=== PATIENT | male | born 1955 | race African-American/Black ===

== ENCOUNTER 2017-12-12 13:05 | Inpatient (IN) | payer MEDICARE, MEDICAID ==
[~2017-12-12] VITALS: Ht 167.6 cm; Wt 95.7 kg
[2017-12-12] MEDS ORDERED: NORVASC5 MG PO (13:21)
[2017-12-12] MEDS ORDERED: NEURONTIN 300300 M1 PO (13:22)
[2017-12-12] MEDS ORDERED: FLORASTOR250 MG PO (13:22)
[2017-12-12] MEDS ORDERED: LIPITOR 20 MG T20 M1 PO (13:22)
[2017-12-12] MEDS ORDERED: LEXAPRO20 MG PO (13:22)
[2017-12-12] MEDS ORDERED: ZANTAC 150MG T150 MG PO (13:23)
[2017-12-12] MEDS ORDERED: QUETIAPINE FUM100 MG PO ×2 (13:23)
[2017-12-12] MEDS ORDERED: TRAZODONE 150150 M1 PO (13:24)
[2017-12-12] MEDS ORDERED: NOVOLOG100 UNIT/1 SUBQ (13:24)
[2017-12-12] MEDS ORDERED: LANTUS100 UNIT/M SUBQ (13:24)
[2017-12-12] MEDS ORDERED: ISORDIL10 MG PO (13:25)
[2017-12-12] MEDS ORDERED: LACTULOSE10 GM/152 PO (13:25)
[2017-12-12] MEDS ORDERED: GLUCOPHAGE XR500 MG PO (13:26)
[2017-12-12] MEDS ORDERED: KEPPRA 500 MG500 M1 PO (13:26)
[2017-12-12] MEDS ORDERED: CLARITIN10 MG PO (13:26)
[2017-12-12] MEDS ORDERED: ATIVAN0.5 MG PO (13:26)
[2017-12-12] MEDS ORDERED: TOPROL XL25 MG PO (13:27)
[2017-12-12 13:54] LABS: ABSOLUTE BASOPHILS 0.1 thou/uL (0.0-0.2); ABSOLUTE EOSINOPHILS 0.2 thou/uL (0.0-0.7); ABSOLUTE LYMPHOCYTES 1.7 thou/uL (0.8-5.3); ABSOLUTE MONOCYTES 0.6 thou/uL (0.0-1.2); ABSOLUTE NEUTROPHILS 5.4 thou/uL (1.6-8.1); BASOPHILS 0.7 %; EOSINOPHILS 2.8 %; HEMATOCRIT 33.4 % (42.0-52.0); HEMOGLOBIN 11.4 gm/dL (14.0-18.0); LYMPHOCYTES 21.4 %; MCH 33.4 pg (26.0-34.0); MCV 98.2 fL (80.0-100.0); MONOCYTES 7.4 %; MPV 10.5 fl. (7.2-11.1); NUCLEATED RBCS 0 /100WBC; PLATELET COUNT* 100 thou/uL (150-400); POLYS 67.7 %
--- NOTE | 2017-12-12 14:11 | NUR ---
PT AMBULATES TO BATHROOM AT THIS TIME WITH STEADY GAIT.
[2017-12-12 14:17] LABS: INFLUENZA A ANTIGEN None Detected (None Detect); INFLUENZA B ANTIGEN None Detected (None Detect)
[2017-12-12 14:20] LABS: ANION GAP 8 mmol/L (7-16); BUN 17 mg/dL (7-18); CALCIUM 8.9 mg/dL (8.5-10.1); CHLORIDE 97 mmol/L (98-107); CO2 23 mmol/L (21-32); CREATININE 1.7 mg/dL (0.6-1.3); POTASSIUM 5.6 mmol/L (3.5-5.1); SODIUM 128 mmol/L (136-145)
[2017-12-12 14:21] LABS: GLUCOSE 740 mg/dL (70-99)
[2017-12-12 14:26] LABS: ALKALINE PHOSPHATASE 257 U/L (46-116); LIPASE 239 U/L (73-393); SGOT 100 U/L (15-37); SGPT 82 U/L (30-65); TOTAL BILIRUBIN 0.5 mg/dL (<0.1-1.0); TOTAL PROTEIN 7.6 g/dL (6.4-8.2); TROPONIN-I LEVEL <0.06 ng/mL (<0.06)
[2017-12-12 14:41] LABS: BE -3.6 mmol/L (-2 to +3); HCO3 21.2 mmol/L (22.0-26.0); PO2 71.2 mmHg (75.0-100.0); pH 7.375 (7.340-7.450)
[2017-12-12 14:55] LABS: MAGNESIUM 1.4 mg/dL (1.8-2.4); PHOSPHORUS* 3.4 mg/dL (2.5-4.9)
[2017-12-12 15:20] VITALS: BP 146/80
[2017-12-12 15:45] VITALS: BP 154/90
[2017-12-12 16:12] LABS: URINE BILIRUBIN NEGATIVE (Negative); URINE BLOOD TRACE (Negative); URINE CLARITY SL CLOUDY; URINE COLOR YELLOW; URINE GLUCOSE-RANDOM 3+ (Negative); URINE KETONES NEGATIVE (Negative); URINE LEUKOCYTES-REFLEX NEGATIVE (Negative); URINE PROTEIN NEGATIVE (Negative); URINE SPECIFIC GRAVITY <= 1.005 (1.005-1.030); URINE UROBILINOGEN 0.2 E.U./dl (0.2-1.0)
[2017-12-12 16:17] LABS: URINE NITRITE-REFLEX POSITIVE (Negative)
[2017-12-12 16:22] LABS: BACTERIA-REFLEX >30 Many /HPF (None Seen)
[2017-12-12 16:23] LABS: CASTS None Seen /LPF (None Seen); CRYSTALS None Seen /LPF (None Seen); MUCUS None Seen strn/LPF (None Seen); SQUAMOUS NONE SEEN /LPF (0-3); URINE RBC 0-2 Rare /HPF (0-2); URINE WBC-REFLEX 6-15 Few /HPF (0-5); WBC CLUMPS Few (None Seen)
[2017-12-12] MEDS ORDERED: XIFAXAN550 M1 PO (17:48)
[2017-12-12] MEDS ORDERED: DUONEB 2.5-0.5 M3 ML INH (17:49)
[2017-12-12 20:00] VITALS: BP 138/81
[2017-12-13] VITALS: BP 124/65
[2017-12-13 04:04] VITALS: BP 128/80
--- NOTE | 2017-12-13 04:26 | NUR ---
ALERT AND ORIENTED X 4. INSULIN DRIP WAS DISCONT. EARLY IN SHIFT. BS AT 0330 228. NO INSULIN ORDERS PHYSICIAN TO EVAL IN AM. CONT. BED IN LOW POSITION, CALL LIGHT IN REACH.
[2017-12-13 05:31] LABS: ABSOLUTE EOSINOPHILS 0.4 thou/uL (0.0-0.7); ABSOLUTE LYMPHOCYTES 2.7 thou/uL (0.8-5.3); ABSOLUTE MONOCYTES 0.6 thou/uL (0.0-1.2); ABSOLUTE NEUTROPHILS 6.7 thou/uL (1.6-8.1); BASOPHILS 0.5 %; EOSINOPHILS 3.6 %; HEMATOCRIT 33.2 % (42.0-52.0); HEMOGLOBIN 11.6 gm/dL (14.0-18.0); LYMPHOCYTES 26.1 %; MCH 33.3 pg (26.0-34.0); MCHC 34.9 g/dL (28.0-37.0); MCV 95.4 fL (80.0-100.0); MPV 10.8 fl. (7.2-11.1); NUCLEATED RBCS 0 /100WBC; PLATELET COUNT* 111 thou/uL (150-400); POLYS 63.8 %; RBC 3.48 mil/uL (4.50-6.00); RDW-CV 12.8 % (10.5-14.5); WBC 10.4 thou/uL (4.0-11.0)
[2017-12-13 05:58] LABS: ALBUMIN 2.8 g/dL (3.4-5.0); CALCIUM 8.9 mg/dL (8.5-10.1); CREATININE 1.3 mg/dL (0.6-1.3); TOTAL BILIRUBIN 0.7 mg/dL (<0.1-1.0)
[2017-12-13 06:02] LABS: POTASSIUM 4.5 mmol/L (3.5-5.1)
[2017-12-13 10:30] VITALS: BP 146/74
[2017-12-13 12:02] VITALS: BP 151/88
--- NOTE | 2017-12-13 12:30 | NUR ---
PT RESTING IN BED IN SEMI-FLORENTINO'S POSITION AT BEGINNING OF SHIFT. PT O x 4. ASSESSMENT COMPLETE. SR ON MONITOR. UP TO BR WITH SBA, HAD INCONTINENCE. SKIN CLEANSED & GOWN/SOCKS CHANGED. PT COOPERATIVE, BUT MOVES AGGRESSIVELY IN BED. PT DISLODGED IV SITE ACCIDENTALLY DURING THIS MOVEMENT. NEEDED ITEMS AND CALL LIGHT IN REACH.
[2017-12-13 15:23] VITALS: BP 150/79
--- NOTE | 2017-12-13 15:50 | NUR ---
CM ASSESSMENT: Pt is A&O. Hx of schizophrenia. LTC resident at [facility]. Cm spoke with Tiffanie at [facility], Pt is normally independent and can return once medically stable. Following for dc needs.
--- NOTE | 2017-12-13 16:14 | EKG ---
[place] [address] ELECTROCARDIOGRAM REPORT Name: FAUSTINO CONTRERAS Room: [address] ADM IN M.R.#: [id number] Admission: 12/12/17 Attend Phys: Aristeo Boyer Discharge: Date of : 53 Report #: [id number] THIS REPORT FOR: //name// [facility] ED Test Date: 2017-12-12 Test Time: 13:49:55 Pat Name: FAUSTINO CONTRERAS Department: Room: [facility] Gender: M Pre Fabricator: MED STUDENT : 1955 Requested By: Nato Brown Order Number: [id number] MD: Ramesh Batista Measurements Intervals [place] Rate: 91 P: 40 MD: 119 QRS: 54 QRSD: 81 T: 28 QT: 332 QTc: 409 Interpretive Statements Sinus rhythm Borderline short MD interval Left atrial enlargement No previous ECG available for comparison Electronically Signed On 12-13-2017 16:14:32 PLUGMAN by Ramesh Batista [email or web address] <ELECTRONICALLY SIGNED> By: Ramesh Batista MD, [facility] 12/13/17 1614 1349 1349 Ramesh Batista MD, FACC /EPI
[2017-12-13 20:00] VITALS: BP 159/79
[2017-12-14] VITALS: BP 132/65
[2017-12-14 02:07] LABS: GLYCOHEMOGLOBIN (HGB A1C) 6.4 % (4.8-5.6)
[2017-12-14 04:00] VITALS: BP 136/63
--- NOTE | 2017-12-14 04:16 | NUR ---
ALERT AND ORIENTED X 4. UP WITH ASSIST. CONT. TO MONITOR BLOOD GLUCOSE. DENIES PAIN OR DISCOMFORT. WILL PROCEED WITH CURRENT PLAN OF CARE AT THIS TIME.
[2017-12-14 05:27] LABS: ABSOLUTE BASOPHILS 0.1 thou/uL (0.0-0.2); ABSOLUTE EOSINOPHILS 0.5 thou/uL (0.0-0.7); ABSOLUTE MONOCYTES 0.7 thou/uL (0.0-1.2); ABSOLUTE NEUTROPHILS 6.6 thou/uL (1.6-8.1); BASOPHILS 0.6 %; EOSINOPHILS 4.6 %; HEMATOCRIT 33.9 % (42.0-52.0); HEMOGLOBIN 11.8 gm/dL (14.0-18.0); LYMPHOCYTES 27.4 %; MCH 33.3 pg (26.0-34.0); MCHC 34.8 g/dL (28.0-37.0); MCV 95.7 fL (80.0-100.0); MONOCYTES 6.7 %; MPV 10.8 fl. (7.2-11.1); NUCLEATED RBCS 0 /100WBC; PLATELET COUNT* 116 thou/uL (150-400); POLYS 60.7 %; RBC 3.54 mil/uL (4.50-6.00); RDW-CV 12.6 % (10.5-14.5); WBC 10.9 thou/uL (4.0-11.0)
[2017-12-14 05:37] LABS: ALBUMIN 2.8 g/dL (3.4-5.0); CALCIUM 8.8 mg/dL (8.5-10.1); CREATININE 1.2 mg/dL (0.6-1.3); POTASSIUM 4.3 mmol/L (3.5-5.1); TOTAL BILIRUBIN 0.8 mg/dL (<0.1-1.0); TOTAL PROTEIN 7.4 g/dL (6.4-8.2)
[2017-12-14 09:15] VITALS: BP 142/83
--- NOTE | 2017-12-14 10:00 | NUR ---
PT SITTING IN CHAIR NEAR WINDOW WITH IV FLUIDS INFUSING ORDERED. ORIENTED TO SELF AND SITUATION. ASSESSMENT COMPLETE. VS WNL. SR ON TELEMETRY MONIOTR. NO C/O PAIN OR DISTRESS. NEEDED ITEMS AND CALL LIGHT WITHIN REACH.
[2017-12-14] MEDS ORDERED: LEVAQUIN 750 M750 MG PO (10:56)
[2017-12-14 12:00] VITALS: BP 147/81
--- NOTE | 2017-12-14 13:32 | NUR ---
Pt discharging back to [facility] today. Faxed dc orders. Chart copied. Left VM for Pt's Yasemin WESLEY. Facility will crop picker Pt around 330pm.
[2017-12-14 15:05] VITALS: BP 147/81
--- NOTE | 2017-12-14 15:15 | NUR ---
PT DC ORDER COMPLETE. REVIEWED DC INSTRUCTIONS AND MED LIST WITH PT. IV AND ADVANCE SEAL DELIVERY SYSTEM MAINTAINER DC'D. PT IN POSSESSION OF ALL BELONGINGS. TRANSPORTER TRANSFERRED PT TO . PT LEFT UNIT AT 1530 WITH TRANSPORTER WHO WILL TAKE PT TO [facility].
== END 2017-12-14 15:30 | DRG 441 ==
LOC: M.ERS 13:05 → M.TBA-ER 14:41 → M.2W 14:41
PROVIDERS: Emergency Medicine; ADMIT Internal Medicine
DX: K72.00 Acute and subacute hepatic failure without coma (principal); N17.0 Acute kidney failure with tubular necrosis; E11.00 Type 2 diabetes mellitus with hyperosmolarity without nonketotic hyperglycemic-hyperosmolar coma (NKHHC); N39.0 Urinary tract infection, site not specified; E44.0 Moderate protein-calorie malnutrition; E11.65 Type 2 diabetes mellitus with hyperglycemia; I12.9 Hypertensive chronic kidney disease with stage 1 through stage 4 chronic kidney disease, or unspecified chronic kidney disease; N18.3 Chronic kidney disease, stage 3 (moderate); F17.210 Nicotine dependence, cigarettes, uncomplicated; F41.9 Anxiety disorder, unspecified; B19.20 Unspecified viral hepatitis C without hepatic coma; K21.9 Gastro-esophageal reflux disease without esophagitis; E11.40 Type 2 diabetes mellitus with diabetic neuropathy, unspecified; F32.9 Major depressive disorder, single episode, unspecified; H40.9 Unspecified glaucoma; E78.5 Hyperlipidemia, unspecified; Z79.899 Other long term (current) drug therapy; Z88.8 Allergy status to other drugs, medicaments and biological substances; Z79.4 Long term (current) use of insulin

== ENCOUNTER 2020-05-16 10:05 | Inpatient (IN) | payer MEDICARE, MEDICAID ==
[~2020-05-16] VITALS: Ht 185.4 cm; Wt 83.6 kg
[~2020-05-16 10:05] MED LIST: ATIVAN0.5 MG PO; CLARITIN10 MG PO; DUONEB 2.5-0.5 M3 ML INH; FLORASTOR250 MG PO; GLUCOPHAGE XR500 MG PO; ISORDIL10 MG PO; KEPPRA 500 MG500 M1 PO; LACTULOSE10 GM/152 PO; LANTUS100 UNIT/M SUBQ; LEVAQUIN 750 M750 MG PO; LEXAPRO20 MG PO; LIPITOR 20 MG T20 M1 PO; NEURONTIN 300300 M1 PO; NORVASC5 MG PO; NOVOLOG100 UNIT/1 SUBQ; QUETIAPINE FUM100 MG PO; TOPROL XL25 MG PO; TRAZODONE HCL100 MG PO; XIFAXAN550 M1 PO; ZANTAC 150MG T150 MG PO
[2020-05-16 10:06] VITALS: BP 122/68
[2020-05-16] MEDS ORDERED: MIRALAX119 GM PO (10:25)
[2020-05-16] MEDS ORDERED: DEPAKOTE250 MG PO (10:27)
[2020-05-16] MEDS ORDERED: LANTANOPROST (10:29)
[2020-05-16] MEDS ORDERED: LEVEMIR FL100 UNIT/2 SUBQ ×2 (10:30)
[2020-05-16] MEDS ORDERED: ARIPIPRAZOLE OD10 MG PO (10:31)
[2020-05-16] MEDS ORDERED: ASA81BEC PO (10:32)
[2020-05-16] MEDS ORDERED: CHLORTHALIDONE25 MG PO (10:32)
[2020-05-16 11:20] LABS: HEMATOCRIT 29.2 % (42.0-52.0); HEMOGLOBIN 10.2 gm/dL (14.0-18.0); MCH 32.6 pg (26.0-34.0); MCV 93.1 fL (80.0-100.0); MPV 8.7 fl. (7.2-11.1); NUCLEATED RBCS 0 /100WBC; PLATELET COUNT* 131 thou/uL (150-400); RBC 3.14 mil/uL (4.50-6.00); WBC 26.3 thou/uL (4.0-11.0)
[2020-05-16 11:31] LABS: CALCIUM 8.3 mg/dL (8.5-10.1); CREATININE 2.5 mg/dL (0.6-1.3); INR 1.1; POTASSIUM 5.1 mmol/L (3.5-5.1); PROTIME 10.9 Seconds (9.20-11.50)
[2020-05-16 11:36] LABS: MAGNESIUM 1.5 mg/dL (1.8-2.4); TOTAL BILIRUBIN 0.5 mg/dL (<0.1-1.0)
[2020-05-16 11:45] LABS: BE -8.9 mmol/L (-2 to +3); PCO2 28.8 mmHg (35.0-45.0); PO2 100.4 mmHg (75.0-100.0); pH 7.349 (7.340-7.450)
[2020-05-16 11:58] LABS: ABSOLUTE LYMPHOCYTES 1.8 thou/uL (0.8-5.3); ABSOLUTE MONOCYTES 1.8 thou/uL (0.0-1.2); ABSOLUTE NEUTROPHILS 22.6 thou/uL (1.6-8.1); PLATELET ESTIMATE ADEQUATE
[2020-05-16 17:41] VITALS: BP 154/79
[2020-05-16 20:50] VITALS: BP 150/78
[2020-05-16 21:00] VITALS: BP 156/81
[2020-05-17] VITALS: BP 132/72
[2020-05-17 04:12] VITALS: BP 151/85
[2020-05-17 06:01] LABS: ABSOLUTE EOSINOPHILS 0.1 thou/uL (0.0-0.7); ABSOLUTE LYMPHOCYTES 3.5 thou/uL (0.8-5.3); ABSOLUTE MONOCYTES 1.1 thou/uL (0.0-1.2); ABSOLUTE NEUTROPHILS 13.4 thou/uL (1.6-8.1); BASOPHILS 0.3 %; EOSINOPHILS 0.8 %; HEMATOCRIT 25.5 % (42.0-52.0); HEMOGLOBIN 9.1 gm/dL (14.0-18.0); LYMPHOCYTES 19.3 %; MCHC 35.6 g/dL (28.0-37.0); MCV 92.9 fL (80.0-100.0); MPV 8.3 fl. (7.2-11.1); NUCLEATED RBCS 0 /100WBC; PLATELET COUNT* 103 thou/uL (150-400); POLYS 73.6 %; RBC 2.75 mil/uL (4.50-6.00); RDW-CV 12.8 % (10.5-14.5); WBC 18.2 thou/uL (4.0-11.0)
[2020-05-17 06:15] LABS: ALBUMIN 2.6 g/dL (3.4-5.0); CALCIUM 8.3 mg/dL (8.5-10.1); POTASSIUM 4.4 mmol/L (3.5-5.1); TOTAL BILIRUBIN 0.4 mg/dL (<0.1-1.0); TOTAL PROTEIN 6.2 g/dL (6.4-8.2)
[2020-05-17 07:30] VITALS: BP 126/74
[2020-05-17 12:00] VITALS: BP 154/80
--- NOTE | 2020-05-17 12:34 | EKG ---
[place] [address] ELECTROCARDIOGRAM REPORT Name: FAUSTINO CONTRERAS Room: [address] ADM IN .R.#: [id number] Admission: 05/16/20 Attend Phys: Guy Aldridge, Discharge: Date of : 53 Date of Service: 05/16/20 1010 Report #: [id number] THIS REPORT FOR: //name// [facility] ED Test Date: 2020-05-16 Test Time: 10:10:35 Pat Name: FAUSTINO CONTRERAS Department: Room: [facility] Gender: M Inside Sales Person: : 1955 Requested By: Kyleigh Mixon Order Number: [id number] MD: Jesse Uriarte Measurements Intervals [place] Rate: 133 P: [place]: QRS: 45 QRSD: 90 T: 109 QT: 339 QTc: 505 Interpretive Statements NSR RSR' in V1 or V2, probably normal variant Repol abnrm suggests ischemia, diffuse leads Artifact in lead(s) III,aVR,aVL,V1,V2,V3,V4,V5,V6 Compared to ECG 12/12/2017 13:49:55 RSR' in V1 or V2 now present Early repolarization now present Possible ischemia now present Electronically Signed On 05-17-2020 12:34:31 CDT by Jesse Uriarte [email or web address] <ELECTRONICALLY SIGNED> By: Wale Uriarte MD, [facility] 05/17/20 1234 1010 1010 Wale Uriarte MD, [facility] /EPI
[2020-05-17 16:00] VITALS: BP 145/80
[2020-05-17 20:10] VITALS: BP 169/89
[2020-05-18] VITALS: BP 163/83
[2020-05-18 03:59] VITALS: BP 136/81
[2020-05-18 05:46] LABS: ABSOLUTE EOSINOPHILS 0.2 thou/uL (0.0-0.7); ABSOLUTE MONOCYTES 0.8 thou/uL (0.0-1.2); ABSOLUTE NEUTROPHILS 11.4 thou/uL (1.6-8.1); BASOPHILS 0.2 %; EOSINOPHILS 1.3 %; HEMATOCRIT 25.9 % (42.0-52.0); HEMOGLOBIN 9.1 gm/dL (14.0-18.0); LYMPHOCYTES 19.5 %; MCH 32.7 pg (26.0-34.0); MCHC 35.2 g/dL (28.0-37.0); MCV 92.9 fL (80.0-100.0); MPV 8.5 fl. (7.2-11.1); NUCLEATED RBCS 0 /100WBC; PLATELET COUNT* 123 thou/uL (150-400); RBC 2.78 mil/uL (4.50-6.00); RDW-CV 12.6 % (10.5-14.5); WBC 15.5 thou/uL (4.0-11.0)
[2020-05-18 06:00] LABS: CREATININE 1.8 mg/dL (0.6-1.3); POTASSIUM 4.5 mmol/L (3.5-5.1)
[2020-05-18 08:30] VITALS: BP 158/80
[2020-05-18 11:46] VITALS: BP 152/87
[2020-05-18] MEDS ORDERED: FLAGYL500 M1 PO (12:15)
[2020-05-18 13:56] VITALS: BP 152/87
== END 2020-05-18 15:15 | DRG 441 ==
LOC: M.ERS 10:05 → M.TBA-ER 13:34 → M.2W 14:42 → M.TBA-ER 14:42 → M.2W 21:15
PROVIDERS: Personal Emergency Response Attendant; ADMIT Internal Medicine; ATTEND Internal Medicine
DX: K72.00 Acute and subacute hepatic failure without coma (principal); R65.11 Systemic inflammatory response syndrome (SIRS) of non-infectious origin with acute organ dysfunction; N17.0 Acute kidney failure with tubular necrosis; E87.2 Acidosis; Z20.828 Contact with and (suspected) exposure to other viral communicable diseases; F20.9 Schizophrenia, unspecified; B19.20 Unspecified viral hepatitis C without hepatic coma; I10 Essential (primary) hypertension; F41.9 Anxiety disorder, unspecified; K74.60 Unspecified cirrhosis of liver; G47.00 Insomnia, unspecified; F17.210 Nicotine dependence, cigarettes, uncomplicated; K59.00 Constipation, unspecified; E86.0 Dehydration; K52.9 Noninfective gastroenteritis and colitis, unspecified; K72.01 Acute and subacute hepatic failure with coma; K21.9 Gastro-esophageal reflux disease without esophagitis; E78.5 Hyperlipidemia, unspecified; E11.40 Type 2 diabetes mellitus with diabetic neuropathy, unspecified; K72.90 Hepatic failure, unspecified without coma; F32.9 Major depressive disorder, single episode, unspecified; Z79.899 Other long term (current) drug therapy; Z79.82 Long term (current) use of aspirin; Z88.8 Allergy status to other drugs, medicaments and biological substances

== ENCOUNTER → 2021-01-19 | Outpatient (CLI) | payer MEDICARE, MEDICAID ==
[~2021-01-19] MED LIST changes: +ARIPIPRAZOLE OD10 MG PO; +ASA81BEC PO; +CHLORTHALIDONE25 MG PO; +DEPAKOTE250 MG PO; +FLAGYL500 M1 PO; +LANTANOPROST; +LEVEMIR FL100 UNIT/2 SUBQ; +MIRALAX119 GM PO
== END ==
LOC: M.CT 09:40
PROVIDERS: ATTEND Surgery
DX: R22.0 Localized swelling, mass and lump, head (principal)

== ENCOUNTER → 2021-01-28 | Day surgery (SDC) | payer MEDICARE, MEDICAID ==
[~2021-01-28] MED LIST changes: +TYLENOL325 M1 PO; +ULTRAM50 MG PO
[2021-01-28 09:54] LABS: HEMATOCRIT 30.7 % (42.0-52.0); HEMOGLOBIN 10.5 gm/dL (14.0-18.0); MCH 31.2 pg (26.0-34.0); MCHC 34.2 g/dL (28.0-37.0); MCV 91.1 fL (80.0-100.0); MPV 7.9 fl. (7.2-11.1); RBC 3.38 mil/uL (4.50-6.00); WBC 11.2 thou/uL (4.0-11.0)
[2021-01-28 09:59] LABS: CALCIUM 8.8 mg/dL (8.5-10.1); CREATININE 3.1 mg/dL (0.6-1.3); POTASSIUM 4.8 mmol/L (3.5-5.1)
--- NOTE | 2021-01-28 12:22 | OP ---
[address] [address] OPERATIVE REPORT Name: FAUSTINO CONTRERAS Room: [facility] Isaias.Magui.#: [id number] Admission: 01/28/21 Attend Phys: Shannan Chapin DO Discharge: Date of : 53 Report #: [id number] THIS REPORT FOR: cc: Mariano Hopkins MD, Dennis R MD Brock, Christie M. DO ~ DICTATED BY: Katina Mccann DO DATE OF SERVICE: 01/28/2021 PREOPERATIVE DIAGNOSIS: Face lesion. POSTOPERATIVE DIAGNOSIS: Face lesion. PRIMARY SURGEON: Shannan Chapin DO LEAD ASSEMBLER: Katina Mccann DO, PGY3 PROCEDURE PERFORMED: Excision of face lesion. ANESTHESIA: Local MAC. ESTIMATED BLOOD LOSS: 10 mL. SPECIMEN REMOVED: Face lesion. COMPLICATIONS: None. OPERATIVE FINDINGS: Face lesion was excised measuring approximately 3 cm x 2 cm x 2 cm, incision was 3 cm in length, depth of dissection was down to subcutaneous tissues. INDICATIONS FOR PROCEDURE: The patient is a pleasant 65-year-old gentleman that presented to our office with complaint of an enlarging facial mass on the lower aspect of the right side of his chin. Due to the size and discomfort that was causing, it was recommended that he undergo excision of this mass. CT scan was performed preoperatively to ensure there was no bony involvement or involvement of any of the other surrounding structures. The procedure, risks, benefits, possible complications to include bleeding, infection, injury to surrounding structures, need for additional surgery, wound healing complications, recurrence of the face lesion, risks of anesthesia, and other risks of surgery were discussed with the patient in great detail. He voiced complete understanding and wished to proceed with surgery. DESCRIPTION OF PROCEDURE: Informed consent was obtained. The patient was taken [place] [id number] OPERATIVE REPORT Name: CONTRERASFAUSTINO Kane Room: [facility] Shanti#: [id number] Admission: 01/28/21 Attend Phys: Shannan Chapin DO Discharge: Date of : 53 Report #: [id number] to the operating room and placed supine on the operating room table. Monitored anesthesia care was initiated without difficulty. The area was prepped and draped in the standard sterile fashion. A timeout was performed to ensure correct patient and procedure. We began by anesthetizing the area with approximately 10 mL of 1% lidocaine with epinephrine and an elliptical incision was made around the visible mass using a #15 blade scalpel. The incision was carried down to the subcutaneous tissues using a pair of tenotomy scissors. The mass was excised in its entirety. Our incision measured approximately 3 cm in length. The mass measured approximately 3 cm x 2 cm x 2 cm, the depth of dissection was down to the subcutaneous tissue. The wound was irrigated. Hemostasis was achieved with electrocautery. The deep subcutaneous tissues were reapproximated using 3-0 Vicryl suture in a simple interrupted and inverted fashion. The skin was closed using a 4-0 PDS in a running fashion. The area was cleansed and dried. Antibiotic ointment was applied to the incision. The patient tolerated the procedure very well. He was allowed to completely awaken in the operating room and was transferred to the PACU in stable condition with plans to discharge later today. <ELECTRONICALLY SIGNED> By: Shannan Chapin DO 01/28/21 1222 1057 1131Cfamilia Chapin DO /nt
--- NOTE | 2021-01-29 09:54 | EKG ---
[place] [address] ELECTROCARDIOGRAM REPORT Name: FAUSTINO CONTRERAS Room: [facility]#: [id number] Admission: 01/28/21 Attend Phys: Shannan Chapin, Discharge: Date of : 53 Date of Service: 01/28/[address] Report #: [id number] THIS REPORT FOR: //name// [facility] Test Date: 2021-01-28 Test Time: 09:32:19 Pat Name: FAUSTINO CONTRERAS Department: Room: Gender: Publicity Manager: [place] : 1955 Requested By: Shannan Chapin Order Number: [id number] Reading MD: Skyler Flynn Measurements Intervals [place] Rate: 80 P: 64 AL: 117 QRS: 54 QRSD: 98 T: 79 QT: 380 QTc: 439 Interpretive Statements Sinus rhythm Borderline short AL interval Probable left atrial enlargement Borderline repolarization abnormality Compared to ECG 05/16/2020 10:10:35 Possible ischemia no longer present Electronically Signed On 01-29-2021 9:53:49 CDT by Skyler Flynn [email or web address] <ELECTRONICALLY SIGNED> By: Skyler Flynn MD, [facility] 01/29/21 0953 0932 Skyler Flynn MD, [facility] /EPI
--- NOTE | 2021-02-02 10:07 | PATH ---
[facility] [address] [place] [address] PATHOLOGY RPT PROCEDURE Name: FAUSTINO PAULA Room: [facility] M.R.#: [id number] Admission: 01/28/21 Date of : 53 Discharge: Report #: [id number] Path Case #: [id number] [facility] Accession Number: [id number] . 01 Material submitted: . face - FACIAL LESION . 01 Clinical history: . SWELLING MASS OR LUMP ON FACE . 02 Diagnosis: Facial lesion: - Benign skin with epidermal inclusion cyst showing chronic and acute inflammation, foreign body type granulomatous response and fibrosis. ([facility]OBERTO:[place]; 02/01/2021) MBR 02/01/2021 [facility] Local . 02 Electronically signed: . Rene Fritz MD, Pathologist NPI- [id number] . 01 Gross description: . Received in formalin labeled "Paula, Faustino, face lesion" is an unoriented ellipse of skin measuring 2.9 x 1.7 x 0.1 cm. The skin surface displays no discrete lesion identified. The margin is inked and the specimen is sectioned into 7 pieces to reveal a cystic structure filled with gelatinous clemens-brown material measuring 1.6 x 1.1 x 0.7 cm. Car Packer sections of the specimen are submitted in cassette A1-A2.([facility]; 01/30/2021) GZA/GZA 02/01/2021 1655 [facility] . 02 Pathologist provided ICD-10: L72.0 . 02 CPT . 382582 Specimen Comment: A courtesy copy of this report has been sent to [phone] Specimen Comment: [phone] Specimen Comment: Report sent to / Performed at: [address], [place], [place] [id number] MD Andrew Ramirez MD Phone: [phone] Performed at: 02 [facility] [address], [place], [place] [id number] MD Rene Fritz MD Phone: [phone]
== END | disposition home or self-care (01) ==
LOC: M.SUR 05:38
PROVIDERS: ATTEND Surgery
DX: L72.0 Epidermal cyst (principal); L92.3 Foreign body granuloma of the skin and subcutaneous tissue; I10 Essential (primary) hypertension; E11.9 Type 2 diabetes mellitus without complications; E78.5 Hyperlipidemia, unspecified; H40.9 Unspecified glaucoma; F41.9 Anxiety disorder, unspecified; K21.9 Gastro-esophageal reflux disease without esophagitis; F32.9 Major depressive disorder, single episode, unspecified; G47.00 Insomnia, unspecified; G62.9 Polyneuropathy, unspecified; Z98.890 Other specified postprocedural states; Z79.899 Other long term (current) drug therapy; Z88.8 Allergy status to other drugs, medicaments and biological substances; Z86.19 Personal history of other infectious and parasitic diseases

== ENCOUNTER 2021-06-01 12:23 | Emergency (ER) | payer MEDICARE, MEDICAID ==
[~2021-06-01] VITALS: Ht 177.8 cm; Wt 99.8 kg
[2021-06-01] MEDS ORDERED: INSULIN AS100 UNIT/1 SUBQ (12:34)
[2021-06-01] MEDS ORDERED: NORVASC10 MG PO (12:35)
[2021-06-01] MEDS ORDERED: ABILIFY15 MG PO (12:36)
[2021-06-01] MEDS ORDERED: BRIMONIDINE 0.110 ML OPHTHALMIC (12:36)
[2021-06-01] MEDS ORDERED: CARVEDILOL25 MG PO (12:37)
[2021-06-01] MEDS ORDERED: HYDRALAZINE HC100 MG PO (12:38)
[2021-06-01] MEDS ORDERED: ERYTHROMYCIN E3.5 G2 OPHTHALMIC (12:38)
[2021-06-01] MEDS ORDERED: DORZOLAMIDE 2%10 ML OPHTHALMIC (12:38)
--- NOTE | 2021-06-01 12:38 | EKG ---
[place] [address] ELECTROCARDIOGRAM REPORT Name: FAUSTINO CONTRERAS [id number] Admission: 06/01/21 Attend Phys: Discharge: Date of : 53 Date of Service: 06/01/21 1232 Report #: [id number] THIS REPORT FOR: //name// [facility] ED Test Date: 2021-06-01 Test Time: 12:32:43 Pat Name: FAUSTINO CONTRERAS Department: Room: Gender: M Medicaid Billing Clerk: SHARMILA : 1955 Requested By: Reji Kamara Order Number: [id number] MD: Skyler Flynn Measurements Intervals [place] Rate: 78 P: 60 TX: 124 QRS: 55 QRSD: 96 T: 87 QT: 372 QTc: 424 Interpretive Statements Sinus rhythm Left atrial enlargement Nonspecific T abnrm, anterolateral leads Baseline wander in lead(s) V2 Compared to ECG 01/28/2021 09:32:19 t wave changes more prominent Electronically Signed On 06-01-2021 12:37:51 CDT by Skyler Flynn [email or web address] <ELECTRONICALLY SIGNED> By: Skyler Flynn MD, [facility] 06/01/21 1237 1232 1232 Skyler Flynn MD, [facility] /EPI
[2021-06-01] MEDS ORDERED: MIRTAZAPINE7.5 MG PO (12:39)
[2021-06-01] MEDS ORDERED: LATANOPROST 0.7.5 ML OPHTHALMIC (12:39)
[2021-06-01] MEDS ORDERED: OCUFLOX5 ML OPHTHALMIC (12:40)
[2021-06-01] MEDS ORDERED: OXTELLAR XR150 MG PO (12:40)
[2021-06-01] MEDS ORDERED: PREDNISOLONE ACE5 ML LT. EYE (12:40)
[2021-06-01] MEDS ORDERED: ACETAZOLAMIDE250 M1 PO (12:41)
[2021-06-01] MEDS ORDERED: TIMOLOL MALEATE5 M2 OPHTHALMIC (12:41)
[2021-06-01] MEDS ORDERED: SODIUM BICARBO650 M3 PO (12:41)
[2021-06-01 12:45] LABS: ABSOLUTE BASOPHILS 0.1 thou/uL (0.0-0.2); ABSOLUTE EOSINOPHILS 0.4 thou/uL (0.0-0.7); ABSOLUTE LYMPHOCYTES 2.3 thou/uL (0.8-5.3); ABSOLUTE MONOCYTES 0.6 thou/uL (0.0-1.2); ABSOLUTE NEUTROPHILS 9.3 thou/uL (1.6-8.1); BASOPHILS 0.9 %; EOSINOPHILS 2.9 %; HEMATOCRIT 27.8 % (42.0-52.0); HEMOGLOBIN 9.3 gm/dL (14.0-18.0); LYMPHOCYTES 18.5 %; MCH 31.2 pg (26.0-34.0); MCHC 33.6 g/dL (28.0-37.0); MCV 92.8 fL (80.0-100.0); MONOCYTES 4.4 %; NUCLEATED RBCS 0 /100WBC; PLATELET COUNT* 160 thou/uL (150-400); POLYS 73.3 %; RBC 2.99 mil/uL (4.50-6.00); RDW-CV 12.1 % (10.5-14.5); WBC 12.7 thou/uL (4.0-11.0)
[2021-06-01 12:54] LABS: CALCIUM 8.5 mg/dL (8.5-10.1); CREATININE 3.6 mg/dL (0.6-1.3); POTASSIUM 4.5 mmol/L (3.5-5.1)
[2021-06-01 13:05] LABS: TOTAL BILIRUBIN 0.3 mg/dL (<0.1-1.0)
[2021-06-01 13:33] LABS: URINE BILIRUBIN NEGATIVE (Negative); URINE BLOOD NEGATIVE (Negative); URINE CLARITY SL CLOUDY; URINE COLOR YELLOW; URINE GLUCOSE-RANDOM NEGATIVE (Negative); URINE KETONES NEGATIVE (Negative); URINE LEUKOCYTES-REFLEX 1+ (Negative); URINE NITRITE-REFLEX NEGATIVE (Negative); URINE PROTEIN 3+ (Negative); URINE UROBILINOGEN 0.2 E.U./dl (0.2-1.0)
[2021-06-01 13:39] LABS: CASTS None Seen /LPF (None Seen); SQUAMOUS 0-3 Few /LPF (0-3); URINE RBC 0-2 Rare /HPF (0-2)
[2021-06-01 13:40] LABS: CRYSTALS None Seen /LPF (None Seen)
[2021-06-01] MEDS ORDERED: MACROBID 100 M100 M1 PO (14:49)
[2021-06-01 15:07] VITALS: BP 151/78
== END 2021-06-01 15:08 | disposition home or self-care (01) ==
LOC: M.ERS 12:23
PROVIDERS: Family Medicine
DX: N39.0 Urinary tract infection, site not specified (principal); R53.1 Weakness; I10 Essential (primary) hypertension; K21.9 Gastro-esophageal reflux disease without esophagitis; E11.40 Type 2 diabetes mellitus with diabetic neuropathy, unspecified; F17.210 Nicotine dependence, cigarettes, uncomplicated; Z88.8 Allergy status to other drugs, medicaments and biological substances

== ENCOUNTER 2021-09-19 10:13 | Emergency (ER) | payer MEDICARE, MEDICAID ==
[~2021-09-19] VITALS: Ht 172.7 cm; Wt 97.1 kg
[~2021-09-19 10:13] MED LIST changes: +ABILIFY15 MG PO; +ACETAZOLAMIDE250 M1 PO; +BRIMONIDINE 0.110 ML OPHTHALMIC; +CARVEDILOL25 MG PO; +DORZOLAMIDE 2%10 ML OPHTHALMIC; +ERYTHROMYCIN E3.5 G2 OPHTHALMIC; +HYDRALAZINE HC100 MG PO; +INSULIN AS100 UNIT/1 SUBQ; +LATANOPROST 0.7.5 ML OPHTHALMIC; +MACROBID 100 M100 M1 PO; +MIRTAZAPINE7.5 MG PO; +NORVASC10 MG PO; +OCUFLOX5 ML OPHTHALMIC; +OXTELLAR XR150 MG PO; +PREDNISOLONE ACE5 ML LT. EYE; +SODIUM BICARBO650 M3 PO; +TIMOLOL MALEATE5 M2 OPHTHALMIC
[2021-09-19] MEDS ORDERED: LORAZEPAM 0.50.5 MG PO (10:22)
[2021-09-19] MEDS ORDERED: OXTELLAR XR150 MG PO (10:23)
[2021-09-19] MEDS ORDERED: SEROQUEL XR 20200 MG PO (10:25)
--- NOTE | 2021-09-19 11:10 | EKG ---
[place] [address] ELECTROCARDIOGRAM REPORT Name: FAUSTINO CONTRERAS Room: [facility]#: [id number] Admission: 09/19/21 Attend Phys: Discharge: Date of : 53 Date of Service: 09/19/21 1033 Report #: [id number] THIS REPORT FOR: //name// [facility] ED Test Date: 2021-09-19 Test Time: 10:33:21 Pat Name: FAUSTINO CONTRERAS Department: Room: Gender: Binder Cutter: : 1955 Requested By: Cuba Guillermo Order Number: [id number] MD: Jesse Uriarte Measurements Intervals [place] Rate: 80 P: 39 NE: 116 QRS: 49 QRSD: 92 T: 76 QT: 423 QTc: 488 Interpretive Statements Pacemaker spikes or artifacts Sinus rhythm Borderline short NE interval Probable left atrial enlargement Borderline prolonged QT interval Compared to ECG 06/01/2021 12:32:43 No significant changes Electronically Signed On 09-19-2021 11:10:43 RECRUITMENT DIRECTOR by Jesse Uriarte [email or web address] <ELECTRONICALLY SIGNED> By: Wale Uriarte MD, [facility] 09/19/21 1110 1033 1033 Wale Uriarte MD, [facility] /EPI
[2021-09-19 11:21] LABS: ALBUMIN 2.6 g/dL (3.4-5.0); CREATININE 4.3 mg/dL (0.6-1.3); POTASSIUM 4.6 mmol/L (3.5-5.1); TOTAL BILIRUBIN 0.3 mg/dL (<0.1-1.0); TOTAL PROTEIN 6.8 g/dL (6.4-8.2)
[2021-09-19 12:38] LABS: ABSOLUTE BASOPHILS 0.1 thou/uL (0.0-0.2); ABSOLUTE EOSINOPHILS 0.2 thou/uL (0.0-0.7); ABSOLUTE LYMPHOCYTES 1.5 thou/uL (0.8-5.3); ABSOLUTE MONOCYTES 0.3 thou/uL (0.0-1.2); ABSOLUTE NEUTROPHILS 6.6 thou/uL (1.6-8.1); BASOPHILS 0.9 %; EOSINOPHILS 2.6 %; HEMOGLOBIN 9.1 gm/dL (14.0-18.0); LYMPHOCYTES 17.1 %; MCH 31.4 pg (26.0-34.0); MCHC 34.8 g/dL (28.0-37.0); MCV 90.1 fL (80.0-100.0); MONOCYTES 3.3 %; MPV 8.4 fl. (7.2-11.1); NUCLEATED RBCS 0 /100WBC; PLATELET COUNT* 124 thou/uL (150-400); POLYS 76.1 %; RBC 2.89 mil/uL (4.50-6.00); WBC 8.7 thou/uL (4.0-11.0)
[2021-09-19] MEDS ORDERED: AUGMENTIN 875-1 EACH PO (13:28)
[2021-09-19] MEDS ORDERED: ZPAK PO (13:28)
[2021-09-19 13:43] VITALS: BP 181/104
== END 2021-09-19 13:46 | disposition home or self-care (01) ==
LOC: M.ERS 10:13
PROVIDERS: Emergency Medicine Emergency Medical Services
DX: J18.9 Pneumonia, unspecified organism (principal); Z20.822 Contact with and (suspected) exposure to COVID-19; F20.9 Schizophrenia, unspecified; E11.40 Type 2 diabetes mellitus with diabetic neuropathy, unspecified; I10 Essential (primary) hypertension; F41.9 Anxiety disorder, unspecified; K21.9 Gastro-esophageal reflux disease without esophagitis; F32.9 Major depressive disorder, single episode, unspecified; F17.210 Nicotine dependence, cigarettes, uncomplicated; Z79.899 Other long term (current) drug therapy; Z79.4 Long term (current) use of insulin; Z79.2 Long term (current) use of antibiotics; Z88.8 Allergy status to other drugs, medicaments and biological substances

== ENCOUNTER 2021-09-22 08:37 | Inpatient (IN) | payer MEDICARE, MEDICAID ==
[~2021-09-22] VITALS: Ht 172.7 cm; Wt 96.8 kg
--- NOTE | ~2021-09-22 | CON ---
[address] [address] CONSULTATION Name: FAUSTINO CONTRERAS Room: [place] [address] ADM IN Jossie.#: [id number] Admission: 09/22/21 Attend Phys: Isaias Grant Discharge: Date of : 53 Report #: [id number] THIS REPORT FOR: cc: Mariano Hopkins MD, Dennis R MD Namin, Farid M. MD ~ DATE OF CONSULTATION: 09/23/2021 REASON FOR CONSULT: Abdominal pain and liver disease. HISTORY OF PRESENT ILLNESS: This is a 66-year-old male with history of hep C and cirrhosis of liver. The patient was admitted to hospital with shortness of air. She was found to have moderate ascites in her imaging. She reports that she has been told that she has liver disease, but has not ever been treated for hep C or any significant workup for his liver disease. PAST MEDICAL HISTORY: Significant for history of diabetes mellitus type 2, hepatitis C, hypertension, schizophrenia, anxiety, depression, seizure disorder, angina, coronary artery disease, hepatic encephalopathy. ALLERGIES: SIGNIFICANT TO LINDA INHIBITORS. MEDICATIONS: Please refer to MAR. SOCIAL HISTORY: The patient reports that he never drank in the past. He admits to having hepatitis C and has never been treated for the same. FAMILY HISTORY: Noncontributory. PHYSICAL EXAMINATION: VITAL SIGNS: Blood pressure of 152/74, pulse of 78, temperature 97.9, respirations 17. LUNGS: Clear. CARDIOVASCULAR: Regular. ABDOMEN: Soft, positive fluid shift, mildly tender to deep palpation. Bowel sounds are positive. LUNGS: Decreased breath sounds at the bases. CARDIOVASCULAR: Regular rate. NEUROLOGIC: The patient is alert, oriented x 3. LABORATORY DATA: Reveal sodium of 143, potassium is 4.6, BUN is 44, creatinine is 4.4, AST is 43, total bilirubin 0.3, alkaline phosphatase is 165, ALT is 32, albumin is 2.4. Ammonia level is 19. INR is 1.1. WBC is 11.6 with hemoglobin of 8.5 and platelets [place] 131. [place] [address] CONSULTATION Name: FAUSTINO CONTRERAS Room: [place] [address] ADM IN ..#: [id number] Admission: 09/22/21 Attend Phys: Isaias Grant Discharge: Date of : 53 Report #: [id number] IMAGING: CT of abdomen and pelvis was obtained. This was significant for moderate ascites, which is new compared to previous study. There is bilateral dependent pleural effusion and small pericardial effusion. There is also mild subpleural line formation in the lung, which could represent Rosa Elena B lines. There is mild pulmonary edema, bibasilar consolidation and infiltrates, which may represent atelectasis or pneumonia. ASSESSMENT AND PLAN: The patient with a history of hep C, for which she was never treated. He has had cirrhosis with new onset ascites as the ascites was not in previous imaging studies. I would like to do abdominal ultrasound with Doppler and also order AFP. The patient will need upper endoscopy prior to his discharge to evaluate for varices. We will also recommend to do a diagnostic tap to rule out SBP. The patient also has renal failure. Nephrology is on board. It would be reasonable to check her for hepatitis C viral load and possibly consider treatment. By: 1309 1328Nadine Harpre MD /nt
--- NOTE | ~2021-09-22 | PROC ---
[address] [address] PROCEDURE REPORT Name: FAUSTINO CONTRERAS Room: [place] [address] DIS IN M.R.#: [id number] Admission: 09/22/21 Attend Phys: Isaias Grant Discharge: 09/27/21 Date of : 53 Report #: [id number] THIS REPORT FOR: cc: Mariano Hopkins MD, Dennis R MD [facility],Medical Records Staff ~ For GI report, please see the Provation report in Perceptive 7 content. By: 0640Medical Records Staff JENNIFER /MADISYN
[~2021-09-22 08:37] MED LIST changes: +AUGMENTIN 875-1 EACH PO; +LORAZEPAM 0.50.5 MG PO; +SEROQUEL XR 20200 MG PO; +ZPAK PO
[2021-09-22 09:00] VITALS: BP 162/80
[2021-09-22 09:04] LABS: ABSOLUTE BASOPHILS 0.1 thou/uL (0.0-0.2); ABSOLUTE EOSINOPHILS 0.4 thou/uL (0.0-0.7); ABSOLUTE MONOCYTES 0.5 thou/uL (0.0-1.2); ABSOLUTE NEUTROPHILS 8.6 thou/uL (1.6-8.1); BASOPHILS 0.7 %; EOSINOPHILS 3.2 %; HEMATOCRIT 24.9 % (42.0-52.0); HEMOGLOBIN 8.5 gm/dL (14.0-18.0); LYMPHOCYTES 17.4 %; MCH 30.7 pg (26.0-34.0); MCHC 34.1 g/dL (28.0-37.0); MONOCYTES 4.7 %; MPV 7.4 fl. (7.2-11.1); NUCLEATED RBCS 0 /100WBC; PLATELET COUNT* 131 thou/uL (150-400); RBC 2.77 mil/uL (4.50-6.00); WBC 11.6 thou/uL (4.0-11.0)
[2021-09-22 09:19] LABS: CALCIUM 8.2 mg/dL (8.5-10.1); CREATININE 4.6 mg/dL (0.6-1.3); POTASSIUM 4.6 mmol/L (3.5-5.1)
[2021-09-22 09:21] LABS: ALBUMIN 2.4 g/dL (3.4-5.0); TOTAL BILIRUBIN 0.3 mg/dL (<0.1-1.0); TOTAL PROTEIN 6.4 g/dL (6.4-8.2)
--- NOTE | 2021-09-22 10:39 | EKG ---
[place] [address] ELECTROCARDIOGRAM REPORT Name: FAUSTINO CONTRERAS Room: [facility]#: [id number] Admission: 09/22/21 Attend Phys: Discharge: Date of : 53 Date of Service: 09/22/21 0847 Report #: [id number] THIS REPORT FOR: //name// [facility] ED Test Date: 2021-09-22 Test Time: 08:47:00 Pat Name: FAUSTINO CONTRERAS Department: Room: Gender: Sociology Adjunct Instructor: [facility] : 1955 Requested By: Cuba Guillermo Order Number: [id number] MD: Skyler Flynn Measurements Intervals [place] Rate: 78 P: 36 IN: 98 QRS: 49 QRSD: 78 T: 58 QT: 405 QTc: 462 Interpretive Statements Sinus rhythm Short IN interval Left atrial enlargement Nonspecific T abnormalities, lateral leads Compared to ECG 09/19/2021 10:33:21 no change Electronically Signed On 09-22-2021 10:39:11 FLOORING SALES MANAGER by Skyler Flynn [email or web address] <ELECTRONICALLY SIGNED> By: Skyler Flynn MD, [facility] 09/22/21 1039 0847 0847 Skyler Flynn MD, [facility] /EPI
[2021-09-22 14:24] LABS: URINE BLOOD NEGATIVE (Negative); URINE CLARITY CLEAR; URINE COLOR YELLOW; URINE GLUCOSE-RANDOM NEGATIVE (Negative); URINE KETONES NEGATIVE (Negative); URINE LEUKOCYTES-REFLEX NEGATIVE (Negative); URINE NITRITE-REFLEX NEGATIVE (Negative); URINE PROTEIN 3+ (Negative); URINE UROBILINOGEN 0.2 E.U./dl (0.2-1.0)
[2021-09-22 14:32] LABS: URINE BILIRUBIN 1+ (Negative)
[2021-09-22 14:34] LABS: ICTOTEST (BILI CONFIRMATORY) Negative (Negative)
[2021-09-22 14:35] LABS: BACTERIA-REFLEX None Seen /HPF (None Seen); CASTS None Seen /LPF (None Seen); CRYSTALS None Seen /LPF (None Seen); URINE RBC 0-2 Rare /HPF (0-2); URINE WBC-REFLEX 0-5 Rare /HPF (0-5)
[2021-09-22 14:36] LABS: SQUAMOUS 0-3 Few /LPF (0-3)
[2021-09-22 16:00] VITALS: BP 189/88
[2021-09-22 20:00] VITALS: BP 192/98
[2021-09-22 21:25] VITALS: BP 172/89
[2021-09-22 22:02] VITALS: BP 145/91
[2021-09-23 00:29] VITALS: BP 156/69
[2021-09-23 05:28] VITALS: BP 189/85
[2021-09-23 08:00] VITALS: BP 196/100
[2021-09-23 09:34] LABS: CALCIUM 8.3 mg/dL (8.5-10.1); CREATININE 4.4 mg/dL (0.6-1.3); POTASSIUM 4.6 mmol/L (3.5-5.1)
[2021-09-23 12:00] VITALS: BP 152/74
[2021-09-23 16:00] VITALS: BP 164/80
[2021-09-24] VITALS: BP 179/90
[2021-09-24 04:00] VITALS: BP 160/63
[2021-09-24 05:20] LABS: HEMATOCRIT 22.3 % (42.0-52.0); HEMOGLOBIN 7.7 gm/dL (14.0-18.0); MCHC 34.5 g/dL (28.0-37.0); MCV 89.9 fL (80.0-100.0); MPV 8.2 fl. (7.2-11.1); RBC 2.48 mil/uL (4.50-6.00); RDW-CV 13.2 % (10.5-14.5); WBC 8.1 thou/uL (4.0-11.0)
[2021-09-24 05:49] LABS: ALBUMIN 2.3 g/dL (3.4-5.0); CREATININE 4.6 mg/dL (0.6-1.3); POTASSIUM 4.9 mmol/L (3.5-5.1); TOTAL BILIRUBIN 0.3 mg/dL (<0.1-1.0)
[2021-09-24 08:30] VITALS: BP 194/99
[2021-09-24 13:55] VITALS: BP 136/63
[2021-09-24 16:00] VITALS: BP 178/90
[2021-09-24 20:00] VITALS: BP 181/80
[2021-09-25] VITALS: BP 149/64
[2021-09-25 04:00] VITALS: BP 167/73
[2021-09-25 08:23] VITALS: BP 172/80
[2021-09-25 12:42] VITALS: BP 144/83
[2021-09-25 14:06] LABS: BODY FLUID PROTEIN 1.5 g/dL (())
[2021-09-25 18:15] VITALS: BP 142/84
[2021-09-25 20:00] VITALS: BP 154/76
[2021-09-26] VITALS (7 sets, daily range): BP systolic 122–156; BP diastolic 62–87
[2021-09-26 05:17] LABS: ALBUMIN 2.4 g/dL (3.4-5.0); CALCIUM 8.2 mg/dL (8.5-10.1); CREATININE 4.6 mg/dL (0.6-1.3); MAGNESIUM 1.7 mg/dL (1.8-2.4); POTASSIUM 4.9 mmol/L (3.5-5.1); TOTAL BILIRUBIN 0.3 mg/dL (<0.1-1.0); TOTAL PROTEIN 6.5 g/dL (6.4-8.2)
--- NOTE | 2021-09-26 10:01 | EKG ---
[place] [address] ELECTROCARDIOGRAM REPORT Name: FAUSTINO CONTRERAS Room: [place] [address] ADM IN M.R.#: [id number] Admission: 09/22/21 Attend Phys: Ginny Hurd Discharge: Date of : 53 Date of Service: 09/26/[address] Report #: [id number] THIS REPORT FOR: //name// [facility] Test Date: 2021-09-26 Test Time: 09:02:12 Pat Name: FAUSTINO CONTRERAS Department: Room: [place] [address] Gender: M Color Stripper: SONDRA : 1955 Requested By: Skyler Flynn Order Number: [id number] Reading MD: Skyler Flynn Measurements Intervals [place] Rate: 88 P: 49 OR: 125 QRS: 52 QRSD: 74 T: 69 QT: 368 QTc: 446 Interpretive Statements Sinus rhythm with short pr interval Atrial premature complex Probable left atrial enlargement Compared to ECG 09/22/2021 08:47:00 Atrial premature complex(es) now present Electronically Signed On 09-26-2021 10:01:50 DIRECTOR OF MEDICAL SERVICES by Skyler Flynn [email or web address] <ELECTRONICALLY SIGNED> By: Skyler Flynn MD, [facility]ACC 09/26/21 1001 1 1 Skyler Flynn MD, [facility] /EPI
[2021-09-27 00:22] VITALS: BP 117/61
[2021-09-27 04:12] VITALS: BP 161/70
[2021-09-27 08:10] VITALS: BP 162/72
[2021-09-27] MEDS ORDERED: CARDURA4 MG PO (11:45)
[2021-09-27] MEDS ORDERED: MINOXIDIL2.5 MG PO (11:45)
[2021-09-27] MEDS ORDERED: HYDRALAZINE 2525 MG PO (11:45)
[2021-09-27] MEDS ORDERED: CEFDINIR300 MG PO (11:45)
[2021-09-27] MEDS ORDERED: LACTULOSE20 GM/30 M PO (11:45)
[2021-09-27] MEDS ORDERED: LASIX 40 MG TAB40 M1 PO (11:45)
[2021-09-27 11:59] LABS: HEMATOCRIT 25.1 % (42.0-52.0); HEMOGLOBIN 8.6 gm/dL (14.0-18.0); MCH 31.2 pg (26.0-34.0); MCHC 34.2 g/dL (28.0-37.0); MCV 91.2 fL (80.0-100.0); MPV 9.2 fl. (7.2-11.1); RBC 2.76 mil/uL (4.50-6.00); RDW-CV 13.4 % (10.5-14.5); WBC 9.3 thou/uL (4.0-11.0)
[2021-09-27 12:03] LABS: CALCIUM 8.4 mg/dL (8.5-10.1); CREATININE 5.3 mg/dL (0.6-1.3)
[2021-09-27 15:46] VITALS: BP 158/88
[2021-09-27] MEDS ORDERED: PROTONIX40 M2 PO (16:33)
[2021-09-27] MEDS ORDERED: PROTONIX40 M4 PO (17:15)
--- NOTE | 2021-09-28 11:54 | CON ---
[address] [address] CONSULTATION Name: FAUSTINO CONTRERAS Room: [address] IN [place]ossie.#: [id number] Admission: 09/22/21 Attend Phys: Isaias Grant Discharge: 09/27/21 Date of : 53 Report #: [id number] THIS REPORT FOR: cc: Mariano Hopkins MD, Dennis R MD Arakelov, Alexandr V. MD ~ DATE OF CONSULTATION: 09/23/2021 REQUESTING PHYSICIAN: Dr. Hurd. REASON FOR CONSULTATION: Acute on chronic kidney disease. HISTORY OF PRESENT ILLNESS: The patient is a 66-year-old gentleman who is a very poor historian. He has a history of hepatitis C, liver cirrhosis, chronic kidney disease, stage IV. Unfortunately, he could not name his primary care physician doctor. He has not been seen by a cap and hat production supervisor. He presented with complaints of some abdominal discomfort, chest pain, and anxiety. He also has history of schizophrenia and anxiety in addition to medical history as mentioned earlier. He was admitted for diagnosis of questionable hepatorenal syndrome. His creatinine on admission was 4.6, is down to 4.4. His baseline is around 4, underlying relating his hepatorenal syndrome, renal function usually gets worse. SOCIAL HISTORY: Denies use of illicit drugs. He currently is a nonsmoker. Denies using alcohol. MEDICATIONS: Reviewed. PHYSICAL EXAMINATION:: GENERAL: He is awake, alert, in no acute distress. HEENT: His pupils are round. NECK: Fatty. LUNGS: Decreased air movements. CARDIOVASCULAR: Regular rate. ABDOMEN: Distended, ascitic fluid is present. EXTREMITIES: Lower extremities with trace edema. ASSESSMENT: 1. Acute kidney injury on top of the chronic kidney disease, stage IV. Renal function is somewhat better today. The patient wants to go home. 2. Liver cirrhosis, due to hepatitis C. 3. Diabetes mellitus type 2. 4. Hypertension. PLAN: If renal function continues to improve, it is okay [place] [address] CONSULTATION Name: FAUSTINO CONTRERAS Room: [address] IN M.R.#: [id number] Admission: 09/22/21 Attend Phys: Isaias Grant Discharge: 09/27/21 Date of : 53 Report #: [id number] He does need to have Nephrology followups, so I would like to see him in my office a couple of weeks after discharge. <ELECTRONICALLY SIGNED> By: Kobi Hugo MD 09/28/21 1154 1105 1124Ajulita Hugo MD /nt
--- NOTE | 2021-09-30 12:07 | PATH ---
[address] [address] PATHOLOGY RPT PROCEDURE Name: FAUSTINO PAULA Room: [place] [address] DIS IN M.R.#: [id number] Admission: 09/22/21 Date of : 53 Discharge: 09/27/21 Report #: [id number] Path Case #: [id number] LCA Accession Number: [id number] . 01 Material submitted: . PART A: stomach - ANTRAL EROSION PART B: duodenum - DUODENITIS . 01 Clinical history: . EGD IN OR ASCITES, CHEST PAIN, ABDOMINAL PAIN . 02 Diagnosis: A. Antral erosion: - Mild chronic antral gastritis typical of reactive gastropathy (chemical gastritis), negative for Helicobacter pylori organisms, granulomas and dysplasia. . B. Duodenitis: - Moderate nonspecific active duodenitis, negative for granulomas, viral inclusions and dysplasia. (ROBERTO:[place]; 09/29/2021) . Special stain on A: H. pylori immuno QTP 09/29/2021 1229 Local . 02 Electronically signed: . Rene Fritz MD, Pathologist NPI- [id number] . 01 Gross description: . A. The specimen is received in formalin, labeled "Chai Faustino, antral erosion". Received is a single segment of pale clemens tissue measuring 0.4 cm in maximum dimensions. The specimen is entirely submitted in cassette A1. . B. The specimen is received in formalin, labeled "Faustino Paula, duodenitis". Received are 4 segments of pale clemens tissue ranging in size from 0.2-0.4 cm in maximum dimensions. The specimen is entirely submitted in cassette B1. ([facility]; 09/28/2021) NRI/NRI 09/28/2021 1300 Local . 02 Pathologist provided ICD-10: K29.50, K29.80 . 02 CPT . 424271, 156568, W74903 [place] [address] PATHOLOGY RPT PROCEDURE Name: FAUSTINO PAULA Kane Room: [address] IN [facility]#: [id number] Admission: 09/22/21 Date of : 53 Discharge: 09/27/21 Report #: [id number] Path Case #: [id number] Specimen Comment: A courtesy copy of this report has been sent to [phone] Specimen Comment: [phone], Specimen Comment: Report sent to , DR ASTUDILLO / DR CHRISTIAN Specimen Comment: A duplicate report has been generated due to demographic updates. Performed at: [address], [place] [address] MD Andrew Ramirez MD Phone: [phone] Performed at: 02 [facility] [address], [place], [place] [address] MD Rene Fritz MD Phone: [phone]
== END 2021-09-27 17:00 | DRG 433 ==
LOC: M.ERS 08:37 → M.2W 11:10 → M.TBA-ER 11:10 → M.2W 21:30
PROVIDERS: Anesthesiology; Emergency Medicine Emergency Medical Services; Internal Medicine Gastroenterology; Internal Medicine Nephrology; ADMIT Internal Medicine; ATTEND Internal Medicine
DX: K74.60 Unspecified cirrhosis of liver (principal); N17.9 Acute kidney failure, unspecified; N18.4 Chronic kidney disease, stage 4 (severe); E44.1 Mild protein-calorie malnutrition; R18.8 Other ascites; B18.2 Chronic viral hepatitis C; E66.9 Obesity, unspecified; I12.9 Hypertensive chronic kidney disease with stage 1 through stage 4 chronic kidney disease, or unspecified chronic kidney disease; F41.9 Anxiety disorder, unspecified; E11.22 Type 2 diabetes mellitus with diabetic chronic kidney disease; F32.A Depression, unspecified; E78.5 Hyperlipidemia, unspecified; F17.210 Nicotine dependence, cigarettes, uncomplicated; K21.9 Gastro-esophageal reflux disease without esophagitis; F20.9 Schizophrenia, unspecified; G47.00 Insomnia, unspecified; H54.62 Unqualified visual loss, left eye, normal vision right eye; E11.40 Type 2 diabetes mellitus with diabetic neuropathy, unspecified; G40.909 Epilepsy, unspecified, not intractable, without status epilepticus; I25.10 Atherosclerotic heart disease of native coronary artery without angina pectoris; R07.9 Chest pain, unspecified; I16.0 Hypertensive urgency; K44.9 Diaphragmatic hernia without obstruction or gangrene; K31.89 Other diseases of stomach and duodenum; Z20.822 Contact with and (suspected) exposure to COVID-19; Z68.33 Body mass index [BMI] 33.0-33.9, adult; Z86.73 Personal history of transient ischemic attack (TIA), and cerebral infarction without residual deficits; Z79.899 Other long term (current) drug therapy; Z88.8 Allergy status to other drugs, medicaments and biological substances

== ENCOUNTER → 2021-11-26 | Outpatient (CLI) | payer MEDICARE, MEDICAID ==
[~2021-11-26] MED LIST changes: +CARDURA4 MG PO; +CEFDINIR300 MG PO; +HYDRALAZINE 2525 MG PO; +LACTULOSE20 GM/30 M PO; +LASIX 40 MG TAB40 M1 PO; +MINOXIDIL2.5 MG PO; +PROTONIX40 M2 PO; +PROTONIX40 M4 PO
[2021-11-26 12:22] LABS: ABSOLUTE EOSINOPHILS 0.2 thou/uL (0.0-0.7); ABSOLUTE LYMPHOCYTES 1.2 thou/uL (0.8-5.3); ABSOLUTE MONOCYTES 0.4 thou/uL (0.0-1.2); ABSOLUTE NEUTROPHILS 5.4 thou/uL (1.6-8.1); BASOPHILS 0.6 %; EOSINOPHILS 2.3 %; HEMATOCRIT 25.7 % (42.0-52.0); HEMOGLOBIN 8.5 gm/dL (14.0-18.0); LYMPHOCYTES 16.9 %; MCH 30.8 pg (26.0-34.0); MCHC 33.1 g/dL (28.0-37.0); MONOCYTES 6.1 %; MPV 7.9 fl. (7.2-11.1); NUCLEATED RBCS 0 /100WBC; PLATELET COUNT* 115 thou/uL (150-400); POLYS 74.1 %; RBC 2.76 mil/uL (4.50-6.00); RDW-CV 13.2 % (10.5-14.5); WBC 7.3 thou/uL (4.0-11.0)
[2021-11-26 12:31] LABS: CALCIUM 8.3 mg/dL (8.5-10.1); CREATININE 4.8 mg/dL (0.6-1.3); POTASSIUM 5.2 mmol/L (3.5-5.1)
[2021-11-26 12:35] LABS: APTT 28.2 Seconds (25.0-31.3); PROTIME 10.6 Seconds (9.20-11.50)
== END | disposition home or self-care (01) ==
LOC: M.LAB 11-22 12:31
PROVIDERS: ATTEND Nurse Practitioner Family
DX: R18.8 Other ascites (principal); Z98.890 Other specified postprocedural states; Z79.899 Other long term (current) drug therapy; Z88.8 Allergy status to other drugs, medicaments and biological substances